=== PATIENT | female | born 1955 | race Caucasian/White ===

== ENCOUNTER → 2018-08-31 | Outpatient (CLI) | payer BC ==
[2018-09-01 02:21] LABS: Vitamin D 25 Hydroxy 16.2 ng/mL (30.0-100.0)
[2018-09-01 03:18] LABS: Thyroid Peroxidase Antibodies 1744.1 U/mL (0.0-60.0)
== END | disposition home or self-care (01) ==
LOC: LABWHC1 16:39
PROVIDERS: ATTEND Ophthalmology Ophthalmic Plastic and Reconstructive Surgery
DX: E55.9 Vitamin D deficiency, unspecified (principal); E05.00 Thyrotoxicosis with diffuse goiter without thyrotoxic crisis or storm; H02.531 Eyelid retraction right upper eyelid; H02.534 Eyelid retraction left upper eyelid
CPT/HCPCS: 36415; 82306; 84255; 84443; 86376; 86800

== ENCOUNTER → 2024-10-31 | Outpatient (CLI) | payer MEDICARE, BC ==
[2024-11-01 02:17] LABS: Basophils # (A) 0.08 X 10*3/uL (0.00-0.10); Basophils % (A) 0.7 %; Eosinophils # (A) 0.07 X 10*3/uL (0.04-0.35); Eosinophils % (A) 0.6 %; HCT 38.9 % (37.2-46.3); HGB 12.2 g/dL (12.0-15.0); Lymphocytes # (A) 2.88 X 10*3/uL (0.90-5.00); Lymphocytes % (A) 24.5 %; MCHC 31.4 g/dL (32.0-37.0); MCV 92.4 FL (80.0-97.0); Mean Platelet Volume 9.8 FL (9.5-12.2); Monocytes # (A) 0.78 X 10*3/uL (0.20-1.00); Monocytes % (A) 6.6 %; NRBC Per 100 WBC 0 X 10*3/uL (0.00-0.01); Neutrophils # (A) 7.88 X 10*3/uL (1.80-7.70); Neutrophils % (A) 67.2 %; Platelet Count 414 X 10*3/uL (140-440); RBC 4.21 X 10*6/uL (4.10-5.20); RDW 16.2 % (11.5-14.5); WBC 11.74 X 10*3/uL (4.50-10.00)
[2024-11-01 03:08] LABS: BUN/Creat Ratio 23.75 Ratio (12.00-20.00); Carbon Dioxide 27.4 mmol/L (21.6-31.8); Chloride 100 mmol/L (96-109); Glucose 100 mg/dL (70-110); Potassium 4.1 mmol/L (3.5-5.5); Rheumatoid Factor, Qnt <15 IU/mL (0-15); Sodium 139 mmol/L (135-145)
[2024-11-01 03:09] LABS: ALT 24 U/L (8-44); AST 25 U/L (13-35); Albumin 4.3 g/dL (3.8-4.9); Albumin/Globulin Ratio 1.72 Ratio (1.60-3.17); Alkaline Phosphatase 114 U/L (41-126); Calcium 9.2 mg/dL (8.7-10.3); Globulin 2.5 g/dL (1.6-3.3); Total Bilirubin <0.2 mg/dL (0.3-1.2); Total Protein 6.8 g/dL (6.2-8.2)
[2024-11-01 04:46] LABS: INR 1.53 sec (0.93-1.11); Prothrombin Time 16.9 sec (9.9-11.9)
[2024-11-01 05:48] LABS: Anti-DNA, DS unit <1.0 IU/mL; DNA Double-Stranded Negative (Negative)
[2024-11-01 12:48] LABS: Smooth Muscle Antibody 9 UNITS (<20)
== END | disposition home or self-care (01) ==
LOC: LABWHC1 14:31
PROVIDERS: ATTEND Student in an Organized Health Care Education/Training Program
DX: R23.1 Pallor (principal); L82.0 Inflamed seborrheic keratosis; L53.8 Other specified erythematous conditions; L29.89 Other pruritus
CPT/HCPCS: 36415; 80053; 82595; 83516; 85025; 85610; 86038; 86225; 86235; 86431